=== PATIENT | male | born 1950 | race Caucasian/White ===

== ENCOUNTER 2017-05-11 09:29 | Emergency (ER) | payer OTHER ==
[~2017-05-11] VITALS: Ht 188 cm; Wt 113.4 kg
[~2017-05-11 09:29] MED LIST: ADALAT CC30 MG PO; ALBUTEROL2.5 MG/0.5 IH; AMOX TR-K CLV 81 TAB PO; AMOX1TAB12 PO; ASA 81MG CHEW. PO; ASA-EC81 MG PO; CARVEDILOL6.25 MG PO; CATAPRES 0.2MG TAB PO; CEFTIN500 MG PO; CIPRO500 MG PO; CLOPIDOGREL BIS75 MG; COZAAR100 MG PO; COZAAR50 MG PO; Coreg PO; Cozaar PO; DOXYCYCLINE HY100 M2 PO; GUAIFENESIN DM118 ML PO; HYDRALAZINE HCL25 MG PO; HYDRALAZINE HCL50 MG PO; INTESTINEX1 CA1 PO; IOPHEN DM-100 MG/5 M PO; KALEXATE15 GM PO; LANTUS100 U/ML SQ; LASIX20 MG PO; LASIX40 MG PO; LEVAQUIN750 MG PO; LIPITOR20 MG PO; MEDROL PACK PO; MEDROLPACK PO; MUPIROCIN15 GM TOP; NEPHROCAPS CAPSU1 MG PO; NEPHROCAPS SOFTG1 MG PO; NORFLEX100MG PO; PEPCID20 MG PO; PLAVIX 75MG PO; PLAVIX75 MG PO; PROAIR HFA8.5 GM IH; PROCARDIA90 MG/BLIS PO; PROMETHAZINE W118 ML PO; PROVENTIL3 ML/2.5 M IH; Phoslo PO; SYMBICORT 16010.2 GM IH; TESSALON PERLE100 M1 PO; TUSSI PRES-B L120 M1 PO; VERAPAMIL ER240 MG; XOPENEX0.63 MG/3 IH; Xopenex 0.63 MG/3 ML SOLUTION IH; ZITHROMAX500 MG PO; ZYNCOF 20-400120 ML PO; Zaroxolyn PO; Zolpidem Tartrate 10MG PO
[2017-05-11] MEDS ORDERED: VISTARIL25 MG PO (13:40)
[2017-05-11] MEDS ORDERED: NORFLEX100MG PO (13:40)
== END 2017-05-11 15:02 | disposition home or self-care (01) ==
LOC: ER 09:29
DX: M54.2 Cervicalgia (principal); R06.02 Shortness of breath

== ENCOUNTER 2017-05-21 14:11 | Emergency (ER) | payer OTHER ==
[~2017-05-21] VITALS: Ht 188 cm; Wt 113.4 kg
[~2017-05-21 14:11] MED LIST changes: +VISTARIL25 MG PO
[2017-05-21] MEDS ORDERED: INSULINA (14:23)
[2017-05-21] MEDS ORDERED: TESSALON PERLE100 M1 PO (22:49)
[2017-05-21] MEDS ORDERED: LEVAQUIN500 MG PO ×2 (22:49)
== END 2017-05-22 10:48 | disposition home or self-care (01) ==
LOC: ER 14:11
DX: E16.1 Other hypoglycemia (principal); I10 Essential (primary) hypertension; R05 Cough; R06.02 Shortness of breath

== ENCOUNTER → 2017-05-24 | Emergency (ER) | payer OTHER ==
[~2017-05-24] VITALS: Ht 167.6 cm; Wt 113.4 kg
[~2017-05-24] MED LIST changes: +INSULINA; +LEVAQUIN500 MG PO
== END | disposition home or self-care (01) ==
LOC: ER 10:29
DX: I10 Essential (primary) hypertension (principal); M54.2 Cervicalgia

== ENCOUNTER → 2017-08-17 | Emergency (ER) | payer OTHER ==
[~2017-08-17] VITALS: Ht 190.5 cm; Wt 108.9 kg
== END | disposition home or self-care (01) ==
LOC: ER 08:19
DX: I50.9 Heart failure, unspecified (principal); E11.9 Type 2 diabetes mellitus without complications

== ENCOUNTER 2017-08-23 08:20 | Emergency (ER) | payer OTHER ==
[~2017-08-23] VITALS: Ht 190.5 cm; Wt 117.9 kg
== END 2017-08-23 12:34 | disposition home or self-care (01) ==
LOC: ER 08:20
DX: J22 Unspecified acute lower respiratory infection (principal)

== ENCOUNTER 2017-10-30 22:57 | Inpatient (IN) | payer OTHER ==
[~2017-10-30] VITALS: Ht 190.5 cm; Wt 108.9 kg
== END 2017-11-05 14:15 | disposition home or self-care (01) | DRG 291 ==
LOC: ER 22:57 → SEC-K 10-31 12:13 → MEDI 10-31 12:13
PROC: B246ZZZ Ultrasonography of Right and Left Heart (ICD-10-PCS; principal; 2017-10-31)
PROC: 4A033R1 Measurement of Arterial Saturation, Peripheral, Percutaneous Approach (ICD-10-PCS; 2017-10-31)
PROC: 3E0F7GC Introduction of Other Therapeutic Substance into Respiratory Tract, Via Natural or Artificial Opening (ICD-10-PCS; 2017-10-31)
PROC: 4A12X4Z Monitoring of Cardiac Electrical Activity, External Approach (ICD-10-PCS; 2017-10-31)
PROC: BW40ZZZ Ultrasonography of Abdomen (ICD-10-PCS; 2017-11-01)
DX: I13.0 Hypertensive heart and chronic kidney disease with heart failure and stage 1 through stage 4 chronic kidney disease, or unspecified chronic kidney disease (principal); I50.23 Acute on chronic systolic (congestive) heart failure; N17.8 Other acute kidney failure; J90 Pleural effusion, not elsewhere classified; L97.518 Non-pressure chronic ulcer of other part of right foot with other specified severity; I34.0 Nonrheumatic mitral (valve) insufficiency; E11.22 Type 2 diabetes mellitus with diabetic chronic kidney disease; E11.21 Type 2 diabetes mellitus with diabetic nephropathy; D63.1 Anemia in chronic kidney disease; E11.65 Type 2 diabetes mellitus with hyperglycemia; I25.10 Atherosclerotic heart disease of native coronary artery without angina pectoris; E11.42 Type 2 diabetes mellitus with diabetic polyneuropathy; J44.9 Chronic obstructive pulmonary disease, unspecified; B37.2 Candidiasis of skin and nail; B96.89 Other specified bacterial agents as the cause of diseases classified elsewhere; E11.621 Type 2 diabetes mellitus with foot ulcer; N18.3 Chronic kidney disease, stage 3 (moderate)

== ENCOUNTER 2017-12-07 08:15 | Inpatient (IN) | payer OTHER ==
[~2017-12-07] VITALS: Ht 190.5 cm; Wt 108.9 kg
== END 2017-12-10 10:16 | disposition expired | DRG 291 ==
LOC: ER 08:15 → SEC-K 20:08 → SURG 20:08 → SURH 21:31 → SEC-K 21:34 → SURG 21:36 → MEDI 21:36 → SURG 12-10 10:16
PROC: 3E0F7GC Introduction of Other Therapeutic Substance into Respiratory Tract, Via Natural or Artificial Opening (ICD-10-PCS; principal; 2017-12-07)
PROC: 4A033R1 Measurement of Arterial Saturation, Peripheral, Percutaneous Approach (ICD-10-PCS; 2017-12-07)
PROC: BT43ZZZ Ultrasonography of Bilateral Kidneys (ICD-10-PCS; 2017-12-07)
PROC: 4A12X4Z Monitoring of Cardiac Electrical Activity, External Approach (ICD-10-PCS; 2017-12-08)
PROC: 0BH17EZ Insertion of Endotracheal Airway into Trachea, Via Natural or Artificial Opening (ICD-10-PCS; 2017-12-10)
DX: I13.2 Hypertensive heart and chronic kidney disease with heart failure and with stage 5 chronic kidney disease, or end stage renal disease (principal); N18.6 End stage renal disease; E87.2 Acidosis; I50.20 Unspecified systolic (congestive) heart failure; N17.8 Other acute kidney failure; E11.22 Type 2 diabetes mellitus with diabetic chronic kidney disease; E11.21 Type 2 diabetes mellitus with diabetic nephropathy; E87.5 Hyperkalemia; D63.1 Anemia in chronic kidney disease; I46.8 Cardiac arrest due to other underlying condition; Z53.29 Procedure and treatment not carried out because of patient's decision for other reasons; J44.9 Chronic obstructive pulmonary disease, unspecified; Z78.1 Physical restraint status